=== PATIENT | male | born 1945 | race Two or more races ===

== ENCOUNTER 2017-07-23 12:40 | Outpatient (CLI) | payer OTHER | END 2017-07-23 12:52 | disposition home or self-care (01) | LOC: RAD 12:40 | DX: N18.6 End stage renal disease (principal) ==

== ENCOUNTER 2017-09-10 13:00 | Outpatient (CLI) | payer OTHER | END 2017-09-10 14:00 | disposition home or self-care (01) | LOC: LAB 13:00 | DX: D63.1 Anemia in chronic kidney disease (principal); N18.5 Chronic kidney disease, stage 5; C44.509 Unspecified malignant neoplasm of skin of other part of trunk; I10 Essential (primary) hypertension; D50.8 Other iron deficiency anemias; D51.8 Other vitamin B12 deficiency anemias; E03.8 Other specified hypothyroidism; R82.79 Other abnormal findings on microbiological examination of urine; N39.0 Urinary tract infection, site not specified ==

== ENCOUNTER 2017-10-29 17:03 | Outpatient (CLI) | payer OTHER | END 2017-10-29 19:58 | disposition home or self-care (01) | LOC: LAB 17:03 → RAD 17:03 | DX: N18.6 End stage renal disease (principal); Z12.6 Encounter for screening for malignant neoplasm of bladder; J90 Pleural effusion, not elsewhere classified ==

== ENCOUNTER 2017-11-02 12:14 | Outpatient (CLI) | payer OTHER | END 2017-11-02 12:19 | disposition home or self-care (01) | LOC: LAB 12:14 | DX: E03.8 Other specified hypothyroidism (principal); N16 Renal tubulo-interstitial disorders in diseases classified elsewhere ==

== ENCOUNTER → 2018-04-22 | Outpatient (CLI) | payer OTHER | END | disposition home or self-care (01) | LOC: WOUND MED 04-17 09:51 | DX: L97.522 Non-pressure chronic ulcer of other part of left foot with fat layer exposed (principal); N18.6 End stage renal disease | CPT/HCPCS: 11042; G0463; A4554; A4930; A6212; A6216 ==

== ENCOUNTER → 2018-05-08 | Outpatient (CLI) | payer OTHER | END | disposition home or self-care (01) | LOC: WOUND MED 11:50 | DX: L97.522 Non-pressure chronic ulcer of other part of left foot with fat layer exposed (principal); N18.6 End stage renal disease | CPT/HCPCS: 11042; A4554; A4930; A6212; A6216; A6219 ==

== ENCOUNTER → 2018-05-15 | Outpatient (CLI) | payer OTHER | END | disposition home or self-care (01) | LOC: WOUND MED 10:55 | DX: L97.522 Non-pressure chronic ulcer of other part of left foot with fat layer exposed (principal) | CPT/HCPCS: 11042; A4554; A4930; A6212; A6216; A6219 ==

== ENCOUNTER → 2018-05-22 | Outpatient (CLI) | payer OTHER | END | disposition home or self-care (01) | LOC: WOUND MED 12:01 | DX: L97.522 Non-pressure chronic ulcer of other part of left foot with fat layer exposed (principal); N18.6 End stage renal disease | CPT/HCPCS: 11042; A4554; A4930; A6216; A6219 ==

== ENCOUNTER → 2018-06-12 | Outpatient (CLI) | payer OTHER | END | disposition home or self-care (01) | LOC: WOUND MED 12:09 | DX: L97.522 Non-pressure chronic ulcer of other part of left foot with fat layer exposed (principal); N18.6 End stage renal disease | CPT/HCPCS: 11042; A4554; A4930; A6212; A6216; A6219 ==

== ENCOUNTER → 2018-06-19 | Outpatient (CLI) | payer OTHER | END | disposition home or self-care (01) | LOC: WOUND MED 12:32 | DX: L97.522 Non-pressure chronic ulcer of other part of left foot with fat layer exposed (principal); N18.6 End stage renal disease | CPT/HCPCS: 11042; A4554; A4930; A6212; A6216; A6219 ==

== ENCOUNTER → 2018-07-17 | Outpatient (CLI) | payer OTHER | END | disposition home or self-care (01) | LOC: WOUND MED 11:53 | DX: L97.522 Non-pressure chronic ulcer of other part of left foot with fat layer exposed (principal) | CPT/HCPCS: 11042; A4554; A4930; A6212; A6216; A6219 ==

== ENCOUNTER → 2018-07-24 | Outpatient (CLI) | payer OTHER | END | disposition home or self-care (01) | LOC: WOUND MED 11:53 | DX: L97.522 Non-pressure chronic ulcer of other part of left foot with fat layer exposed (principal) | CPT/HCPCS: 11042; A4554; A4930; A6212; A6216; A6219 ==

== ENCOUNTER → 2018-07-31 | Outpatient (CLI) | payer OTHER | END | disposition home or self-care (01) | LOC: WOUND MED 11:51 | DX: L97.522 Non-pressure chronic ulcer of other part of left foot with fat layer exposed (principal) | CPT/HCPCS: 11042; A4554; A4930; A6212; A6216; A6219 ==

== ENCOUNTER → 2018-09-11 | Outpatient (CLI) | payer OTHER | END | disposition home or self-care (01) | LOC: WOUND MED 12:03 | DX: L97.522 Non-pressure chronic ulcer of other part of left foot with fat layer exposed (principal) | CPT/HCPCS: 11042; G0463; A4554; A4930; A6212; A6216; A6219 ==

== ENCOUNTER → 2018-09-25 | Outpatient (CLI) | payer OTHER | END | disposition home or self-care (01) | LOC: WOUND MED 10:58 | DX: L97.522 Non-pressure chronic ulcer of other part of left foot with fat layer exposed (principal) | CPT/HCPCS: 11042; A4554; A4930; A6212; A6216 ==

== ENCOUNTER → 2018-10-21 | Outpatient (CLI) | payer OTHER | END | disposition home or self-care (01) | LOC: WOUND MED 10:00 | DX: L97.522 Non-pressure chronic ulcer of other part of left foot with fat layer exposed (principal) | CPT/HCPCS: 11042; A4554; A4930; A6196; A6216; A6219; A6266 ==

== ENCOUNTER → 2018-10-28 | Outpatient (CLI) | payer OTHER | END | disposition home or self-care (01) | LOC: WOUND MED 10:45 | DX: L97.522 Non-pressure chronic ulcer of other part of left foot with fat layer exposed (principal) | CPT/HCPCS: 97606; A4554; A4930; A6212; A6216; A6219; A6266 ==

== ENCOUNTER → 2018-11-04 | Outpatient (CLI) | payer OTHER | END | disposition home or self-care (01) | LOC: WOUND MED 11:35 | DX: L97.522 Non-pressure chronic ulcer of other part of left foot with fat layer exposed (principal) | CPT/HCPCS: 11042; A4554; A4930; A6216; A6219 ==

== ENCOUNTER → 2018-11-11 | Outpatient (CLI) | payer OTHER | END | disposition home or self-care (01) | LOC: WOUND MED 11:25 | DX: L97.522 Non-pressure chronic ulcer of other part of left foot with fat layer exposed (principal) | CPT/HCPCS: 11042; A4554; A4930; A6212; A6216 ==

== ENCOUNTER 2018-11-20 09:36 | Outpatient (CLI) | payer OTHER | END 2018-11-20 10:09 | disposition home or self-care (01) | LOC: LAB 09:36 | DX: R70.0 Elevated erythrocyte sedimentation rate (principal) ==

== ENCOUNTER → 2018-11-20 | Outpatient (CLI) | payer OTHER | END | disposition home or self-care (01) | LOC: WOUND MED 11:47 | DX: L97.522 Non-pressure chronic ulcer of other part of left foot with fat layer exposed (principal) | CPT/HCPCS: 11042; A4554; A4930; A6196; A6212; A6216; A6219 ==

== ENCOUNTER → 2018-11-27 | Outpatient (CLI) | payer OTHER | END | disposition home or self-care (01) | LOC: WOUND MED 11:41 | DX: L97.522 Non-pressure chronic ulcer of other part of left foot with fat layer exposed (principal) | CPT/HCPCS: 11042; A4554; A4930; A6212; A6216; A6219 ==

== ENCOUNTER → 2018-12-11 | Outpatient (CLI) | payer OTHER | END | disposition home or self-care (01) | LOC: WOUND MED 11:40 | DX: L97.522 Non-pressure chronic ulcer of other part of left foot with fat layer exposed (principal) | CPT/HCPCS: 11042; A4554; A4930; A6216; A6219 ==

== ENCOUNTER → 2018-12-17 | Outpatient (CLI) | payer OTHER | END | disposition home or self-care (01) | LOC: TOM 08:30 | DX: N40.0 Benign prostatic hyperplasia without lower urinary tract symptoms (principal); N32.1 Vesicointestinal fistula ==

== ENCOUNTER → 2018-12-18 | Outpatient (CLI) | payer OTHER | END | disposition home or self-care (01) | LOC: WOUND MED 08:30 | DX: L97.522 Non-pressure chronic ulcer of other part of left foot with fat layer exposed (principal) | CPT/HCPCS: 11042; A4554; A4930; A6216; A6219 ==

== ENCOUNTER → 2018-12-25 | Outpatient (CLI) | payer OTHER | END | disposition home or self-care (01) | LOC: WOUND MED 11:47 | DX: L97.522 Non-pressure chronic ulcer of other part of left foot with fat layer exposed (principal) | CPT/HCPCS: 11042; A4554; A4930; A6196; A6216; A6219 ==

== ENCOUNTER → 2019-01-01 | Outpatient (CLI) | payer OTHER | END | disposition home or self-care (01) | LOC: WOUND MED 11:37 | DX: L97.522 Non-pressure chronic ulcer of other part of left foot with fat layer exposed (principal) | CPT/HCPCS: 11042; A4554; A4930; A6196; A6216; A6219 ==

== ENCOUNTER → 2019-01-08 | Outpatient (CLI) | payer OTHER | END | disposition home or self-care (01) | LOC: WOUND MED 08:15 | DX: L97.522 Non-pressure chronic ulcer of other part of left foot with fat layer exposed (principal) | CPT/HCPCS: 11042; A4554; A4930; A6212; A6216; A6219 ==

== ENCOUNTER → 2019-01-20 | Outpatient (CLI) | payer OTHER | END | disposition home or self-care (01) | LOC: WOUND MED 11:48 | DX: L97.522 Non-pressure chronic ulcer of other part of left foot with fat layer exposed (principal) | CPT/HCPCS: 11042; A4554; A4930; A6212; A6216; A6219 ==

== ENCOUNTER → 2019-02-03 | Outpatient (CLI) | payer OTHER | END | disposition home or self-care (01) | LOC: WOUND MED 11:42 | DX: L97.522 Non-pressure chronic ulcer of other part of left foot with fat layer exposed (principal) | CPT/HCPCS: 11042; A4554; A4930; A6216; A6219 ==

== ENCOUNTER → 2019-02-10 | Outpatient (CLI) | payer OTHER | END | disposition home or self-care (01) | LOC: WOUND MED 11:52 | DX: L97.522 Non-pressure chronic ulcer of other part of left foot with fat layer exposed (principal) | CPT/HCPCS: 11042; A4554; A4930; A6196; A6216 ==

== ENCOUNTER → 2019-02-17 | Outpatient (CLI) | payer OTHER | END | disposition home or self-care (01) | LOC: WOUND MED 11:32 | DX: L97.522 Non-pressure chronic ulcer of other part of left foot with fat layer exposed (principal) | CPT/HCPCS: 11042; A4554; A4930; A6216; A6219 ==

== ENCOUNTER → 2019-02-26 | Outpatient (CLI) | payer OTHER | END | disposition home or self-care (01) | LOC: WOUND MED 12:05 | DX: L97.522 Non-pressure chronic ulcer of other part of left foot with fat layer exposed (principal) | CPT/HCPCS: 11042; A4554; A4930; A6216; A6219 ==

== ENCOUNTER 2019-03-05 11:54 | Outpatient (CLI) | payer OTHER | END 2019-03-05 13:00 | disposition home or self-care (01) | LOC: WOUND MED 11:54 | DX: L97.522 Non-pressure chronic ulcer of other part of left foot with fat layer exposed (principal) | CPT/HCPCS: 11042; A4554; A4930; A6216; A6219 ==

== ENCOUNTER 2019-03-12 12:14 | Outpatient (CLI) | payer OTHER | END 2019-03-12 13:00 | disposition home or self-care (01) | LOC: WOUND MED 12:14 | DX: L97.522 Non-pressure chronic ulcer of other part of left foot with fat layer exposed (principal) | CPT/HCPCS: 11042; A4554; A4930; A6216; A6219 ==

== ENCOUNTER 2019-03-19 11:56 | Outpatient (CLI) | payer OTHER | END 2019-03-19 13:00 | disposition home or self-care (01) | LOC: WOUND MED 11:56 | DX: L97.522 Non-pressure chronic ulcer of other part of left foot with fat layer exposed (principal) | CPT/HCPCS: 11042; A4554; A4930; A6216; A6266 ==

== ENCOUNTER 2019-03-26 12:41 | Outpatient (CLI) | payer OTHER | END 2019-03-26 13:00 | disposition home or self-care (01) | LOC: WOUND MED 12:41 | DX: L97.522 Non-pressure chronic ulcer of other part of left foot with fat layer exposed (principal) | CPT/HCPCS: 11042; A4554; A4930; A6216; A6219; A6266 ==

== ENCOUNTER 2019-04-02 12:05 | Outpatient (CLI) | payer OTHER | END 2019-04-02 13:00 | disposition home or self-care (01) | LOC: WOUND MED 12:05 | DX: L97.522 Non-pressure chronic ulcer of other part of left foot with fat layer exposed (principal) | CPT/HCPCS: 11042; A4554; A4930; A6216; A6219 ==

== ENCOUNTER 2019-04-09 12:00 | Outpatient (CLI) | payer OTHER | END 2019-04-09 13:00 | disposition home or self-care (01) | LOC: WOUND MED 12:00 | DX: L97.522 Non-pressure chronic ulcer of other part of left foot with fat layer exposed (principal) | CPT/HCPCS: 11042; A4554; A4930; A6216; A6219 ==

== ENCOUNTER 2019-05-07 11:46 | Outpatient (CLI) | payer OTHER | END 2019-05-07 12:40 | disposition home or self-care (01) | LOC: WOUND MED 11:46 | DX: L97.522 Non-pressure chronic ulcer of other part of left foot with fat layer exposed (principal) | CPT/HCPCS: 11044; A4554; A4930; A6216; A6219 ==